=== PATIENT | male | born 1945 | race Caucasian/White ===

== ENCOUNTER 2018-01-13 23:12 | Emergency (ER) | payer OTHER ==
--- NOTE | 2018-01-13 23:39 | ER Report ---
History and Physical Time Seen By : 23:39 Hx. of Stated Complaint: PT REPORTS THAT HE IS HAVING SOB, ARMS ACHE, REPORTS CHEST PAIN. PT HAS BEEN TRAVELING. JUST IN HOSPITAL IN [facility]. DIAGNOSED WITH ANGINA. HPI/ROS CHIEF COMPLAINT: chest pain and shortness of breath HISTORY OF PRESENT ILLNESS: This is a 72 year old male. He has been having intermittent chest pains and shortness of breath. He is traveling home to [place]. He was in the hospital for similar problems in [place], [place] recently. They told him he was having Angina. He was doing okay today, and about an hours or so ago started having shortness of breath and chest pain. He has been traveling today across [place]. He did get out of the vehicle every few hours to walk and stretch his legs. Has been doing okay today. Has a mild cough. Denies fevers. Has some nausea with this. No abdominal pain. Had a large bowel movement today. Normal urination. He has diabetes and blood sugars have been running a little high during his traveling. No history of heart problems in the past. No swelling in legs. No history of blood clots in extremities or lungs. Allergies: Coded Allergies: No Known Drug Allergies (Unverified , 01/13/18) Home Meds Active Scripts Nitroglycerin (NITROGLYCERIN) 0.4 Mg Tab.subl, 0.4 MG SL Q5MIN, #1 BOTTLE 0 Refills Prov:CAMILO WINTER MD 01/14/18 Hydrocodone Bit/Acetaminophen (HYDROCODON-ACETAMINOPHEN 5-325) 1 Each Tablet, 1 EACH PO Q4H Y for PAIN, #10 TAB 0 Refills Prov:CAMILO WINTER MD 01/14/18 Reported Medications Triamcinolone Acetonide 0.1% (TRIAMCINOLONE ACETONIDE 0.1%) 60 Ml Lotion, 1 KALI TP BID, BOT 01/14/18 Sertraline Hcl (SERTRALINE HCL) 50 Mg Tablet, 1 TAB PO QDAY, TAB 01/14/18 Prazosin Hcl (PRAZOSIN HCL) 2 Mg Capsule, 4 MG PO HS, CAPSULE 01/14/18 Metoprolol Tartrate (METOPROLOL TARTRATE) 25 Mg Tablet, 2 TAB PO BID, TAB 01/14/18 Metformin Hcl (METFORMIN HCL) 1,000 Mg Tablet, 1 TAB PO BID, TAB 01/14/18 Isosorbide Mononitrate (ISOSORBIDE MONONITRATE ER) 30 Mg Tab.er.24h, 30 MG PO DAILY 01/14/18 Insulin Glargine (LANTUS) 100 Unit/Ml Soln, 36 UNIT SUBQ HS, ML 01/14/18 Insulin Aspart (NOVOLOG) 100 Unit/Ml Soln, 100 UNIT SUBQ ACHS 01/14/18 Hydrochlorothiazide (HYDROCHLOROTHIAZIDE) 25 Mg Tablet, 1 TAB PO QDAY, TAB 01/14/18 Dextrose (GLUCOSE) 4 Gm Tab.chew, 4 GM PO PRN Y for SEE COMMENT, TAB.CHEW 01/14/18 Gabapentin (GABAPENTIN) 300 Mg Capsule, 900 MG PO TID, CAPSULE 01/14/18 Finasteride (FINASTERIDE) 5 Mg Tablet, 5 MG PO QDAY 01/14/18 Enalapril Maleate (ENALAPRIL MALEATE) 20 Mg Tablet, 20 MG PO BID 01/14/18 Carboxymethylcellulos/Glycerin ([employer] LUBRICATING EYE DROPS) 15 Ml Drops, 1 GTT OP QID 01/14/18 Carbamazepine (CARBAMAZEPINE) 200 Mg Tablet, 100 MG PO BID 01/14/18 Bupropion Hcl (BUPROPION HCL SR) 150 Mg Tablet.er, 150 MG PO QDAY, #10 TAB 01/14/18 Atorvastatin Calcium (LIPITOR) 20 Mg Tablet, 1 TAB PO HS, TAB 01/14/18 Aspirin (ASPIRIN) 325 Mg Tablet, 325 MG PO DAILY, TAB 01/14/18 Ammonium Lactate (SKIN TREATMENT) 225 Gm Lotion, 1 KALI TOP DAILY 01/14/18 Amlodipine Besylate (AMLODIPINE BESYLATE) 10 Mg Tablet, 1 TAB PO QDAY, TAB 01/14/18 Reviewed Nurses Notes: Yes Hx Substance Use Disorder: No Hx Alcohol Use: No Constitutional Vital Sign - Last 24 Hours 01/13/18 01/13/18 01/13/18 01/13/18 23:15 23:19 23:20 23:30 Temp 97.9 Pulse 106 100 Resp 22 11 B/P (MAP) 149/81 (103) 149/81 Pulse Ox 91 95 O2 Delivery Nasal Cannula O2 Flow Rate 2.0 01/13/18 01/14/18 01/14/18 01/14/18 23:45 00:00 00:15 00:30 Pulse 96 94 95 89 Resp 17 15 16 8 B/P (MAP) 149/76 (100) 164/82 (109) Pulse Ox 92 94 91 92 01/14/18 01/14/18 01/14/18 01/14/18 00:45 01:00 01:15 01:45 Pulse 89 89 100 93 Resp 8 12 15 17 B/P (MAP) 125/75 (92) Pulse Ox 91 92 93 95 01/14/18 01/14/18 01/14/18 01/14/18 02:00 02:15 02:30 02:45 Pulse 88 91 97 Resp 9 18 25 B/P (MAP) 125/60 (81) 143/65 (91) Pulse Ox 92 90 94 01/14/18 01/14/18 01/14/18 03:00 03:00 03:15 Pulse 89 89 87 Resp 16 B/P (MAP) 157/76 (103) 157/76 (103) Pulse Ox 92 Physical Exam General Appearance: The patient is alert. No acute distress. Eyes: Pupils are equal, round. No pallor, injection or icterus. ENT: Mucous membranes are moist. Normal oral mucosa. Posterior oropharynx is normal. Neck: Supple and non tender. No lymphadenopathy. Respiratory: Lungs are clear to auscultation. There are no retractions or accessory muscle use. Cardiovascular: Regular rate and rhythm. No murmurs, gallops or rubs. Normal capillary refill. No edema. Gastrointestinal: Abdomen is soft and non tender. Nondistended. Normal active bowel sounds. Neurological: Alert and oriented x3. Skin: Warm and dry. No rashes. Musculoskeletal: No tenderness in palpation of the back and spine. DIFFERENTIAL DIAGNOSIS: After history and physical exam, differential diagnosis was considered for shortness of breath and chest pain including but not limited to myocardial ischemia, pulmonary embolus, chest wall pain, reflux, pleural inflammation and pulmonary infectious causes. Medical Decision Making Data Points Result Diagram: 01/13/18232901/13/182329 Laboratory Hematology Test 01/13/18 23:30 01/14/18 02:53 Red Blood Count 4.64 M/uL (4.00-5.60) Mean Corpuscular Volume 83.9 fL (80.0-96.0) Mean Corpuscular Hemoglobin 29.3 pg (26.0-33.0) Mean Corpuscular Hemoglobin Concent 34.9 g/dL (32.0-36.0) Red Cell Distribution Width 14.7 % (11.5-14.5) Mean Platelet Volume 7.6 fL (7.2-11.1) Neutrophils (%) (Auto) 65.0 % (39.4-72.5) Lymphocytes (%) (Auto) 24.9 % (17.6-49.6) Monocytes (%) (Auto) 7.6 % (4.1-12.4) Eosinophils (%) (Auto) 1.4 % (0.4-6.7) Basophils (%) (Auto) 1.1 % (0.3-1.4) Nucleated RBC Relative Count (auto) 0.1 /100WBC Neutrophils # (Auto) 5.3 K/uL (2.0-7.4) Lymphocytes # (Auto) 2.0 K/uL (1.3-3.6) Monocytes # (Auto) 0.6 K/uL (0.3-1.0) Eosinophils # (Auto) 0.1 K/uL (0.0-0.5) Basophils # (Auto) 0.1 K/uL (0.0-0.1) Nucleated RBC Absolute Count (auto) 0.01 K/uL Sodium Level 135 mmol/L (137-145) Potassium Level 3.4 mmol/L (3.5-5.0) Chloride Level 100 mmol/L (98-107) Carbon Dioxide Level 22 mmol/L (22-30) Blood Urea Nitrogen 20 mg/dl (9-21) Creatinine 1.10 mg/dl (0.66-1.25) Glomerular Filtration Rate Calc > 60.0 Random Glucose 251 mg/dl (75-110) Calcium Level 9.0 mg/dl (8.4-10.2) Total Bilirubin 0.2 mg/dl (0.2-1.3) Aspartate Amino Transf (AST/SGOT) 46 U/L (0-35) Alanine Aminotransferase (ALT/SGPT) 57 U/L (0-56) Alkaline Phosphatase 62 U/L (0-126) B-Type Natriuretic Peptide < 5 pg/ml (0-100) Total Protein 6.6 g/dl (6.3-8.2) Albumin 3.9 g/dl (3.5-5.0) Troponin I 0.020 ng/ml Chemistry Test 01/13/18 23:30 01/14/18 02:53 White Blood Count 8.1 k/uL (4.5-11.0) Red Blood Count 4.64 M/uL (4.00-5.60) Hemoglobin 13.6 g/dL (14.0-18.0) Hematocrit 38.9 % (42.0-52.0) Mean Corpuscular Volume 83.9 fL (80.0-96.0) Mean Corpuscular Hemoglobin 29.3 pg (26.0-33.0) Mean Corpuscular Hemoglobin Concent 34.9 g/dL (32.0-36.0) Red Cell Distribution Width 14.7 % (11.5-14.5) Platelet Count 204 K/uL (150-450) Mean Platelet Volume 7.6 fL (7.2-11.1) Neutrophils (%) (Auto) 65.0 % (39.4-72.5) Lymphocytes (%) (Auto) 24.9 % (17.6-49.6) Monocytes (%) (Auto) 7.6 % (4.1-12.4) Eosinophils (%) (Auto) 1.4 % (0.4-6.7) Basophils (%) (Auto) 1.1 % (0.3-1.4) Nucleated RBC Relative Count (auto) 0.1 /100WBC Neutrophils # (Auto) 5.3 K/uL (2.0-7.4) Lymphocytes # (Auto) 2.0 K/uL (1.3-3.6) Monocytes # (Auto) 0.6 K/uL (0.3-1.0) Eosinophils # (Auto) 0.1 K/uL (0.0-0.5) Basophils # (Auto) 0.1 K/uL (0.0-0.1) Nucleated RBC Absolute Count (auto) 0.01 K/uL Glomerular Filtration Rate Calc > 60.0 Calcium Level 9.0 mg/dl (8.4-10.2) Total Bilirubin 0.2 mg/dl (0.2-1.3) Aspartate Amino Transf (AST/SGOT) 46 U/L (0-35) Alanine Aminotransferase (ALT/SGPT) 57 U/L (0-56) Alkaline Phosphatase 62 U/L (0-126) B-Type Natriuretic Peptide < 5 pg/ml (0-100) Total Protein 6.6 g/dl (6.3-8.2) Albumin 3.9 g/dl (3.5-5.0) Troponin I 0.020 ng/ml EKG/Imaging EKG Interpretation 12 lead EKG: At 2335 hrs. Rhythm: normal sinus rhythm, rate 92 [place]: normal QRS: normal ST segments: normal 12 lead EKG: At 0247 hrs. Rhythm: normal sinus rhythm, rate 92 Unchanged Imaging HISTORY: Chest pain DATE: 01/13/2018 11:51 PM TECHNIQUE: CHEST PA AND LAT COMPARISON: none FINDINGS: The cardiomediastinal silhouette is of normal size and contour. No pleural effusion. No pneumothorax. No consolidation. The lungs are adequately expanded. IMPRESSION: No acute findings. Report Dictated By: Sona Strickland MD at 01/14/2018 12:[address] ANGIOGRAM OF THE CHEST WITH INTRAVENOUS CONTRAST, PE PROTOCOL DATE OF EXAM: 01/14/2018 01:16 COMPARISON: Chest radiographs January 13, 2018. INDICATION: Chest pain and shortness of breath. TECHNIQUE: Contrast enhanced chest CT performed during the injection of 75 ml of Isovue-370. Three-dimensional (MIP) reconstructions were performed. FINDINGS: There is no pulmonary arterial filling defect. Thyroid: Normal Thoracic inlet: There is no thoracic inlet lymphadenopathy. Heart and great vessels: Heart size is within normal limits. Coronary atherosclerosis is prominent. Mediastinum and zaire: Minimal thickening of the right hilum. A few mediastinal lymph nodes are prominent, for example a paratracheal node on series 4 image 113. Lungs and pleura: Mild atelectasis and/or scar dependently in the lungs. No effusion, consolidation, or pneumothorax. Breast and axilla: Breast tissue is unremarkable by CT. Bones and soft tissues: No acute osseous abnormality. Multilevel degenerative findings. Upper abdomen: Liver parenchymal density is diffusely decreased. Hepatic hypodensities are not well characterized. These are likely cysts. The liver surface does appear somewhat nodular. IMPRESSION: 1. Negative for pulmonary arterial embolus. 2. Hepatic steatosis with somewhat nodular appearance of the liver surface. One of the following dose optimization techniques was utilized in the performance of this exam: Automated exposure control; adjustment of the mA and/ or kV according to the patient's size; or use of an iterative reconstruction technique. Specific details can be referenced in the facility's radiology CT exam operational policy. Report Dictated By: Sona Strickland MD at 01/14/2018 2:00 AM ED Course/Re-evaluation Clinical Indication for ER IV: IV Access ED Course Initial labs fairly unremarkable. Unable to run a d-dimer. Troponin at 0.020. Chest x-ray negative. CT scan obtained, CT angiogram showed no evidence of PE. Repeat troponin and EKG were negative. Discussion with the patient and family regarding symptoms and need to return to their home in [place] for further testing. Given a prescription for nitroglycerin tablets to try with any chest pain. Further musculoskeletal arm pain he is having, we will go ahead and give him some Lortab to use on his way home. Decision to Disposition Date: Jan 14, 2018 Decision to Disposition Time: 03:26 Depart Departure Latest Vital Signs Vital Signs Date Time Temp Pulse Resp B/P (MAP) Pulse Ox O2 Delivery O2 Flow Rate FiO2 01/14/18 03:15 87 16 92 01/14/18 03:00 157/76 (103) 01/13/18 23:20 2.0 01/13/18 23:19 97.9 Nasal Cannula Impression: Primary Impression: Chest pain Condition: Improved Disposition: HOME OR SELF-CARE New Scripts Nitroglycerin (NITROGLYCERIN) 0.4 Mg Tab.subl 0.4 MG SL Q5MIN, #1 BOTTLE 0 Refills Prov: CAMILO WNITER MD 01/14/18 Hydrocodone Bit/Acetaminophen (HYDROCODON-ACETAMINOPHEN 5-325) 1 Each Tablet 1 EACH PO Q4H Y for PAIN, #10 TAB 0 Refills Prov: CAMILO WINTER MD 01/14/18 Patient Instructions: Chest Pain (ED) Additional Instructions: You have not had a heart attack, also without blood clots in lungs, pneumonia or other dangerous condition. You still need to follow-up with your doctor back in [place] this week. They will need to do a further cardiac workup for coronary artery disease and angina as we discussed. No heavy physical activity until cleared by your doctor. For your pain in the arms, you can take Lortab 5/325, one every 4 hours as needed for pain. Problem Qualifiers Primary Impression: Chest pain Chest pain type: unspecified Qualified Codes: R07.9 - Chest pain, unspecified CAMILO WINTER MD Jan 13, 2018 23:39
[2018-01-13] MEDS ORDERED: ONDANSETRON 4 MG/2 ML VIAL IVP ONE (23:55)
[2018-01-13] MEDS ORDERED: ASPIRIN 81 MG CHEW PO ONE (23:55)
[2018-01-13] MEDS ORDERED: MORPHINE 4 MG/ML SDV IVP ONE (23:55)
--- NOTE | 2018-01-13 23:59 | EKG ---
FACILITY: [facility] PATIENT NAME: JARVIS COLON : [id number] MR: [id number] V: [id number] EXAM DATE: ORDERING PHYSICIAN: CAMILO WINTER TECHNOLOGIST: DEVAUGHN Silva Reason : Blood Pressure : / mmHG Vent. Rate : 092 BPM Atrial Rate : 092 BPM P-R Int : 170 ms QRS Dur : 088 ms QT Int : 384 ms P-R-T Axes : 071 070 043 degrees QTc Int : 474 ms Normal sinus rhythm Normal ECG No previous ECGs available Confirmed by SPENCER HUFFMAN ([id number]) on 01/14/2018 6:35:56 AM Referred By: Confirmed By:SPENCER HUFFMAN
[2018-01-14 00:07] LABS: PLATELET COUNT, AUTOMATED 204 K/uL (150-450)
[2018-01-14] MEDS ORDERED: HYDR-2966 PO (00:27)
[2018-01-14] MEDS ORDERED: GABA-549 PO (00:27)
[2018-01-14] MEDS ORDERED: BUPR-156 PO (00:27)
[2018-01-14] MEDS ORDERED: CARB-91 PO (00:27)
[2018-01-14] MEDS ORDERED: ASPI-757 PO (00:27)
[2018-01-14] MEDS ORDERED: METF-421 PO (00:27)
[2018-01-14] MEDS ORDERED: ATOR20TA22 PO (00:27)
[2018-01-14] MEDS ORDERED: LANI SUBQ (00:27)
[2018-01-14] MEDS ORDERED: TRIA60LO3 TP (00:27)
[2018-01-14] MEDS ORDERED: [UNRECOGNIZED DRUG - CODE] OP (00:27)
[2018-01-14] MEDS ORDERED: DEXT-116 PO (00:27)
[2018-01-14] MEDS ORDERED: FINA5TAB67 PO (00:27)
[2018-01-14] MEDS ORDERED: ISOS30TA54 PO (00:27)
[2018-01-14] MEDS ORDERED: AMLO-99 PO (00:27)
[2018-01-14] MEDS ORDERED: [UNRECOGNIZED DRUG - CODE] TOP (00:27)
[2018-01-14] MEDS ORDERED: METO25TA93 PO (00:27)
[2018-01-14] MEDS ORDERED: ENAL20TA99 PO (00:27)
[2018-01-14] MEDS ORDERED: SERT-184 PO (00:27)
[2018-01-14] MEDS ORDERED: NOVOLOG SUBQ (00:27)
[2018-01-14] MEDS ORDERED: PRAZ2CAP26 PO (00:27)
--- NOTE | 2018-01-14 00:43 | RADIOLOGY IMAGING REPORT ---
FACILITY: [facility] PATIENT NAME: Keyon Sena : 1945 MR: [id number] V: [id number] EXAM DATE: ORDERING PHYSICIAN: CAMILO WINTER TECHNOLOGIST: Location: [facility] [place] Patient: Keyon Sena : 1945 Visit/Account:[id number] Date of Sevice: 01/13/2018 HISTORY: Chest pain DATE: 01/13/2018 11:51 PM TECHNIQUE: CHEST PA AND LAT COMPARISON: none FINDINGS: The cardiomediastinal silhouette is of normal size and contour. No pleural effusion. No pne umothorax. No consolidation. The lungs are adequately expanded. IMPRESSION: No acute findings. Report Dictated By: Sona Strickland MD at 01/14/2018 12:38 AM Report E-Signed By: Sona Strickland MD at 01/14/2018 12:39 AM WSN:[id number]
[2018-01-14] MEDS ORDERED: NS(*) 0.9% 50 ML BAG 50 ML ONE (01:29)
[2018-01-14] MEDS ORDERED: IOPAMIDOL 76% 75 ML INFUS BTL 75 ML ONE (01:29)
--- NOTE | 2018-01-14 02:21 | RADIOLOGY IMAGING REPORT ---
FACILITY: [facility] [place] PATIENT NAME: Keyon Sena : 1945 MR: [id number] V: [id number] EXAM DATE: [id number] ORDERING PHYSICIAN: CAMILO WINTER TECHNOLOGIST: Location: [facility] Patient: Keyon Sena : 1945 Visit/Account:[id number] Date of Sevice: 01/14/2018 CT ANGIOGRAM OF THE CHEST WITH INTRAVENOUS CONTRAST, PE PROTOCOL DATE OF EXAM: 01/14/2018 01:16 COMPARISON: Chest radiographs January 13, 2018. INDICATION: Chest pain and shortness of breath. TECHNIQUE: Contrast enhanced chest CT performed during the injection of 75 ml of Isovue-370. Three-d imensional (MIP) reconstructions were performed. FINDINGS: There is no pulmonary arterial filling defect. Thyroid: Normal Thoracic inlet: There is no thoracic inlet lymphadenopathy. Heart and great vessels: Heart size is within normal limits. Coronary atherosclerosis is prominent. Mediastinum and zaire: Minimal thickening of the right hilum. A few mediastinal lymph nodes are promi nent, for example a paratracheal node on series 4 image 113. Lungs and pleura: Mild atelectasis and/or scar dependently in the lungs. No effusion, consolidation, or pneumothorax. Breast and axilla: Breast tissue is unremarkable by CT. Bones and soft tissues: No acute osseous abnormality. Multilevel degenerative findings. Upper abdomen: Liver parenchymal density is diffusely decreased. Hepatic hypodensities are not well c haracterized. These are likely cysts. The liver surface does appear somewhat nodular. IMPRESSION: 1. Negative for pulmonary arterial embolus. 2. Hepatic steatosis with somewhat nodular appearance of the liver surface. One of the following dose optimization techniques was utilized in the performance of this exam: Autom ated exposure control; adjustment of the mA and/or kV according to the patient's size; or use of an i terative reconstruction technique. Specific details can be referenced in the facility's radiology C T exam operational policy. Report Dictated By: Sona Strickland MD at 01/14/2018 2:00 AM Report E-Signed By: Snoa Strickland MD at 01/14/2018 2:16 AM WSN:[id number]
--- NOTE | 2018-01-14 02:55 | EKG ---
FACILITY: [facility] [place] PATIENT NAME: JARVIS COLON : [id number] MR: [id number] V: [id number] EXAM DATE: ORDERING PHYSICIAN: CAMILO WINTER TECHNOLOGIST: DEVAUGHN Silva Reason : CHEST PAIN Blood Pressure : / mmHG Vent. Rate : 092 BPM Atrial Rate : 092 BPM P-R Int : 182 ms QRS Dur : 096 ms QT Int : 368 ms P-R-T Axes : 072 070 051 degrees QTc Int : 455 ms Normal sinus rhythm Nonspecific T wave abnormality Abnormal ECG When compared with ECG of 13-JAN-2018 23:35, No significant change was found Confirmed by SPENCER HUFFMAN ([id number]) on 01/14/2018 6:35:09 AM Referred By: Confirmed By:SPENCER HUFFMAN
[2018-01-14 03:00] VITALS: BP 157/76
[2018-01-14] MEDS ORDERED: LOR5/325 PO (03:27)
[2018-01-14] MEDS ORDERED: ACET/HYDROC 5/325MG TH ER ONLY 2 TAB/BOTTLE PO ONE (03:30)
[2018-01-14] MEDS ORDERED: NITR0.4T3 SL (03:38)
== END 2018-01-14 03:40 | disposition home or self-care (01) ==
LOC: ER 23:23
DX: R07.89 Other chest pain (principal)
CPT/HCPCS: 71046; 71275; 83880; 84484; 85025; 93005; 96374; 96375; 99284; J2270; J2405; J7050; Q9967; 82040; 82247; 82310; 82374; 82435; 82565; 82947; 84075; 84132; 84155; 84295; 84450; 84460; 84520